=== PATIENT | male | born 1980 | race Caucasian/White ===

== ENCOUNTER 2025-01-21 15:34 | Inpatient (IN) | payer OTHER, SELFPAY ==
[2025-01-21] MEDS ORDERED: Famotidine/PF 20 mg/2ml Vial ONE (16:18)
[2025-01-21 16:29] LABS: Actual Bicarbonate (HCO3v) 12.5 mEq/L (22-28); Analyzer IN Cardio CS ER; Base Excess -12.2 mEq/L (-2 - +2); Calcium, Ionized (venous) 1.13 mmol/L (1.16-1.32); Chloride (VBG) 88 mmol/L (98-106); Critical Notified By: Udy, RRT; Hematocrit-VBG 63 % (42.0-52.0); Hemoglobin (Hb) 21.3 g/dL (13.2-17.3); Potassium (VBG) 3.65 mmol/L (3.70-5.30); Puncture Site Other Site; Sodium 131 mmol/L (133-146)
[2025-01-21 16:49] LABS: ALT (SGPT) 17 U/L (Less than 45); AST (SGOT) 22 U/L (11-34); Albumin 4.7 g/dL (3.1-4.5); Alkaline Phosphatase 99 U/L (40-110); Anion Gap 33 mmol/L (10-20); BUN (Urea Nitrogen) 34 mg/dL (8.9-20.6); Bilirubin, Total 1.3 mg/dL (0.3-1.2); Calc. Creatinine Clearance 0 mL/min (70-130); Calcium 9.0 mg/dL (7.8-10.44); Carbon Dioxide 11 mmol/L (22-29); Chloride 87 mmol/L (98-107); Globulin 3.9 g/dL (2.4-3.5); Glucose 331 mg/dL (70-105); Lipase 23 U/L (8-78); Magnesium 2.4 mg/dL (1.6-2.6); Potassium 3.6 mmol/L (3.5-5.1); Sodium 127 mmol/L (136-145)
[2025-01-21 16:53] LABS: Troponin I Less than 0.010 ng/mL (< 0.028)
[2025-01-21 17:06] LABS: #Basophils Less than 0.03 10x3/uL (0.0-0.2); #Eosinophils Less than 0.03 10x3/uL (0.0-0.5); #Monocytes 0.57 10x3/uL (0.0-1.1); #Neutrophils 11.67 10x3/uL (1.5-8.4); %Basophils 0.1 % (0.0-2.0); %Eosinophils 0.0 % (0.0-6.0); %Lymphocytes 7.5 % (18.0-47.0); %Monocytes 4.3 % (0.0-10.0); %Neutrophils 87.4 % (40.0-75.0); Hematocrit 55.6 % (38.8-50.0); Hemoglobin 20.0 g/dL (13.5-17.5); Mean Corpuscular Hemoglobin 31.6 pg (27.0-33.0); Mean Corpuscular Volume 88.0 fL (81.2-95.1); Platelet Count 446 10x3/uL (150-450); Red Blood Cell (RBC) Count 6.32 10x6/uL (4.32-5.72); White Blood Cell (WBC) Count 13.36 10x3/uL (3.5-10.5)
[2025-01-21] MEDS ORDERED: NS 0.9% w/ 20 MEQ KCL 1,000 ML ONE (17:18)
[2025-01-21] MEDS ORDERED: INSULIN REGULAR IN 0.9 % NACL 100 ML ONE (18:23)
[2025-01-21 18:46] LABS: Glucose, Urine (Dipstick) >=1000 mg/dL (Negative); Leukocyte Negative (Negative); Protein, Urine (Dipstick) 100 mg/dl (Neg-Trace); Specific Gravity, Urine 1.025 (1.005-1.030)
[2025-01-21 18:57] LABS: Bacteria/HPF Rare-Few HPF (None Seen); CAUTI Indications for Culture Pelvic or flank pain; RBC/HPF 0-3 HPF (0-3); WBC/HPF None Seen HPF (0-3)
[2025-01-21 18:58] LABS: Urine Culture Reflex No No
[2025-01-21] MEDS ORDERED: Ondansetron PF 4 MG/2 ML Vial IVP PRN (20:20)
[2025-01-21] MEDS ORDERED: Calcium Carbonate 500 MG ChewTAB PO PRN (20:20)
[2025-01-21] MEDS ORDERED: Guaifenesin DM 100-10/5 ML UDCUP PO PRN (20:20)
[2025-01-21] MEDS ORDERED: Melatonin 3 MG TAB PO PRN (20:20)
[2025-01-21] MEDS ORDERED: Senokot S 8.6-50 MG TAB PO PRN (20:20)
[2025-01-21] MEDS ORDERED: INSULIN REGULAR IN 0.9 % NACL 100 ML IVPB SCH (21:00)
[2025-01-21] MEDS: Mupirocin 1 GM TUBE TP SCH (21:10)
[2025-01-21] MEDS: Rosuvastatin 10 MG TAB PO SCH (21:10)
[2025-01-21] MEDS: Famotidine/PF 20 mg/2ml Vial SLOW IVP SCH (21:10)
[2025-01-21] MEDS ORDERED: INSULIN REGULAR IN 0.9 % NACL 100 UNITS in Premix 1 BAG IVPB SCH (21:45)
[2025-01-21] MEDS: Ketorolac Tromethamine 30 MG (1 mL) VIAL IVP SCH (23:07)
[2025-01-21] MEDS: Cephalexin 500 MG CAP PO SCH (23:11)
[2025-01-21] MEDS ORDERED: Glucagon 1 MG/ML KIT IM PRN (23:14)
[2025-01-21] MEDS ORDERED: Dextrose 50% Abboject 50 ML SYRINGE SLOW IVP PRN (23:14)
[2025-01-21] MEDS: PNEUMOC 20-VAL CONJ-DIP CRM/PF 0.5 ML SYRINGE IM ONE (23:15)
[2025-01-21 23:20] LABS: Anion Gap 19 mmol/L (10-20); BUN (Urea Nitrogen) 26 mg/dL (8.9-20.6); Calc. Creatinine Clearance 156 mL/min (70-130); Carbon Dioxide 15 mmol/L (22-29); Chloride 102 mmol/L (98-107); Glucose 94 mg/dL (70-105); Potassium 3.5 mmol/L (3.5-5.1); Sodium 132 mmol/L (136-145)
[2025-01-21 23:22] LABS: Calcium 7.6 mg/dL (7.8-10.44)
[2025-01-22 04:23] LABS: Anion Gap 12 mmol/L (10-20); BUN (Urea Nitrogen) 23 mg/dL (8.9-20.6); Calc. Creatinine Clearance 76 mL/min (70-130); Calcium 7.2 mg/dL (7.8-10.44); Carbon Dioxide 17 mmol/L (22-29); Cardiac Risk 6.0 (Less than 4.5); Chloride 106 mmol/L (98-107); Cholesterol 179 mg/dl (< 200 Desired); Glucose 222 mg/dL (70-105); HDL Cholesterol 30 mg/dL (>60 Neg Risk); LDL Cholesterol, Calculated 123 mg/dL; Magnesium 2.0 mg/dL (1.6-2.6); Potassium 4.5 mmol/L (3.5-5.1); Sodium 130 mmol/L (136-145); Triglycerides 132 mg/dL (Less than 150)
[2025-01-22 05:05] LABS: #Basophils Less than 0.03 10x3/uL (0.0-0.2); #Eosinophils Less than 0.03 10x3/uL (0.0-0.5); #Monocytes 1.54 10x3/uL (0.0-1.1); #Neutrophils 10.34 10x3/uL (1.5-8.4); %Basophils 0.1 % (0.0-2.0); %Eosinophils 0.1 % (0.0-6.0); %Lymphocytes 19.7 % (18.0-47.0); %Monocytes 10.3 % (0.0-10.0); %Neutrophils 69.4 % (40.0-75.0); Hematocrit 38.4 % (38.8-50.0); Hemoglobin 13.7 g/dL (13.5-17.5); Mean Corpuscular Hemoglobin 31.4 pg (27.0-33.0); Mean Corpuscular Volume 88.1 fL (81.2-95.1); Platelet Count 285 10x3/uL (150-450); Red Blood Cell (RBC) Count 4.36 10x6/uL (4.32-5.72); White Blood Cell (WBC) Count 14.90 10x3/uL (3.5-10.5)
[2025-01-22] MEDS: Potassium Phosphate 30 MMOL in Sodium Chloride 0.9% 250 ML 250 ML IVPB SCH (05:40)
[2025-01-22] MEDS: Carvedilol 3.125 MG TAB PO SCH (08:09)
[2025-01-22] MEDS: Aspirin 81 mg Enteric Coated Tablet PO SCH (08:09)
[2025-01-22] MEDS: Losartan 25 MG TAB PO SCH (08:09)
[2025-01-22] MEDS: Enoxaparin 40 MG (0.4 mL) SYRINGE SC SCH (08:10)
[2025-01-22 09:19] LABS: Anion Gap 9 mmol/L (10-20); BUN (Urea Nitrogen) 19 mg/dL (8.9-20.6); Calc. Creatinine Clearance 75 mL/min (70-130); Calcium 7.4 mg/dL (7.8-10.44); Carbon Dioxide 19 mmol/L (22-29); Chloride 107 mmol/L (98-107); Glucose 187 mg/dL (70-105); Potassium 4.2 mmol/L (3.5-5.1); Sodium 131 mmol/L (136-145)
[2025-01-22] MEDS ORDERED: Dextrose 50% Abboject 50 ML SYRINGE SLOW IVP PRN (09:55)
[2025-01-22] MEDS ORDERED: Glucagon 1 MG/ML KIT IM PRN (09:55)
[2025-01-22] MEDS: Lantus 1000 UNITS/10 ML VIAL SC SCH ×2 (10:15→20:54)
[2025-01-22] MEDS: Acetaminophen 325 MG TAB PO PRN (11:31)
[2025-01-22 19:57] VITALS: BMI 15.5
[2025-01-23 05:49] LABS: #Basophils Less than 0.03 10x3/uL (0.0-0.2); #Eosinophils 0.04 10x3/uL (0.0-0.5); #Monocytes 0.99 10x3/uL (0.0-1.1); #Neutrophils 5.39 10x3/uL (1.5-8.4); %Basophils 0.2 % (0.0-2.0); %Eosinophils 0.4 % (0.0-6.0); %Lymphocytes 35.7 % (18.0-47.0); %Monocytes 9.8 % (0.0-10.0); %Neutrophils 53.5 % (40.0-75.0); Hematocrit 38.1 % (38.8-50.0); Hemoglobin 13.8 g/dL (13.5-17.5); Mean Corpuscular Hemoglobin 31.7 pg (27.0-33.0); Mean Corpuscular Volume 87.4 fL (81.2-95.1); Platelet Count 257 10x3/uL (150-450); Red Blood Cell (RBC) Count 4.36 10x6/uL (4.32-5.72); White Blood Cell (WBC) Count 10.08 10x3/uL (3.5-10.5)
[2025-01-23 07:10] LABS: ALT (SGPT) 11 U/L (Less than 45); AST (SGOT) 22 U/L (11-34); Albumin 3.2 g/dL (3.1-4.5); Alkaline Phosphatase 56 U/L (40-110); Anion Gap 12 mmol/L (10-20); BUN (Urea Nitrogen) 9 mg/dL (8.9-20.6); Bilirubin, Total 1.4 mg/dL (0.3-1.2); Calc. Creatinine Clearance 109 mL/min (70-130); Calcium 8.0 mg/dL (7.8-10.44); Carbon Dioxide 26 mmol/L (22-29); Chloride 99 mmol/L (98-107); Globulin 2.3 g/dL (2.4-3.5); Glucose 56 mg/dL (70-105); Potassium 2.9 mmol/L (3.5-5.1); Sodium 134 mmol/L (136-145)
[2025-01-23] MEDS: Enoxaparin 30 MG (0.3 mL) SYRINGE SC SCH (09:00)
[2025-01-23] MEDS ORDERED: Ketorolac Tromethamine 30 MG (1 mL) VIAL IVP PRN (09:06)
[2025-01-23] MEDS ORDERED: Pharmacy to Dose - VANCOMYCIN IVPB PRN (09:36)
[2025-01-23] MEDS ORDERED: Vancomycin 1 GM in Sodium Chloride 0.9% 250 ML 250 ML IVPB SCH (10:00)
[2025-01-23] MEDS: Vancomycin 1 GM in Sodium Chloride 0.9% 250 ML 250 ML IVPB SCH ×3 (12:57→21:59)
[2025-01-24 05:59] VITALS: BMI 16.2
[2025-01-24 06:05] LABS: #Basophils 0.05 10x3/uL (0.0-0.2); #Eosinophils 0.06 10x3/uL (0.0-0.5); #Monocytes 0.67 10x3/uL (0.0-1.1); #Neutrophils 4.31 10x3/uL (1.5-8.4); %Basophils 0.7 % (0.0-2.0); %Eosinophils 0.8 % (0.0-6.0); %Lymphocytes 31.7 % (18.0-47.0); %Monocytes 9.0 % (0.0-10.0); %Neutrophils 57.5 % (40.0-75.0); Hematocrit 38.8 % (38.8-50.0); Hemoglobin 14.0 g/dL (13.5-17.5); Mean Corpuscular Hemoglobin 31.4 pg (27.0-33.0); Mean Corpuscular Volume 87.0 fL (81.2-95.1); Platelet Count 240 10x3/uL (150-450); Red Blood Cell (RBC) Count 4.46 10x6/uL (4.32-5.72); White Blood Cell (WBC) Count 7.48 10x3/uL (3.5-10.5)
[2025-01-24 06:22] LABS: Anion Gap 10 mmol/L (10-20); BUN (Urea Nitrogen) 7 mg/dL (8.9-20.6); Calc. Creatinine Clearance 104 mL/min (70-130); Calcium 8.2 mg/dL (7.8-10.44); Carbon Dioxide 29 mmol/L (22-29); Chloride 99 mmol/L (98-107); Glucose 143 mg/dL (70-105); Potassium 3.8 mmol/L (3.5-5.1); Sodium 134 mmol/L (136-145)
[2025-01-24 06:27] LABS: Vancomycin, Random 11.2 ug/mL (See Comment)
[2025-01-24] MEDS: Vancomycin 1 GM in Sodium Chloride 0.9% 250 ML 250 ML IVPB SCH (09:27)
[2025-01-24] MEDS: Vancomycin HCl 750 MG in Sodium Chloride 0.9% 250 ML 250 ML IVPB SCH (16:14)
[2025-01-25 05:18] LABS: Vancomycin, Random 17.1 ug/mL (See Comment)
[2025-01-25 08:28] VITALS: BP 124/69; TEMP 98
== END 2025-01-25 12:28 | disposition home or self-care (01) | DRG 638 ==
LOC: CSHERS 15:34 → CSHICU 18:13 → CSHTELE 01-22 15:07
PROVIDERS: ADMIT Family Medicine; ATTEND Family Medicine
DX: E11.10 Type 2 diabetes mellitus with ketoacidosis without coma (principal); E44.0 Moderate protein-calorie malnutrition; E87.1 Hypo-osmolality and hyponatremia; R64 Cachexia; N17.9 Acute kidney failure, unspecified; Z68.1 Body mass index [BMI] 19.9 or less, adult; L03.012 Cellulitis of left finger; E86.0 Dehydration; F12.10 Cannabis abuse, uncomplicated; F17.210 Nicotine dependence, cigarettes, uncomplicated; E78.5 Hyperlipidemia, unspecified; I11.0 Hypertensive heart disease with heart failure; Z95.1 Presence of aortocoronary bypass graft; Z98.890 Other specified postprocedural states; Z91.148 Patient's other noncompliance with medication regimen for other reason; Z79.899 Other long term (current) drug therapy; Z79.82 Long term (current) use of aspirin; Z79.4 Long term (current) use of insulin
CPT/HCPCS: 36415; 36416; 71045; 80048; 80053; 80061; 80202; 81001; 82010; 82040; 82805; 83036; 83690; 83735; 84100; 84484; 85025; 87428; 93005; 96365; 96375; J0692; J1308; J1650; J1815; J1885; J3373; J3480; J7030; J7042; J7050